=== PATIENT | female | born 1985 | race African-American/Black ===

== ENCOUNTER 2016-08-22 02:22 | Emergency (ER) | payer MEDICAID ==
--- NOTE | ~2016-08-22 | CR63 ---
[facility] A Service of [facility] & [facility] RADIOLOGY TEXT RESULTS PATIENT: ALLAN RUSSELL LOCATION: [facility] : 89 UNIT #: [id number] AGE: [address]: Dayna Shi APRN SEX: F ORDER DR: [id number] [facility] [address] [place], [place] [address] [id number] E MR#: [id number] Acc #: [id number] NAME: ALLAN RUSSELL : 1985 SEX: F STUDY DATE/TIME: 08/22/2016 0310 UNIT: [facility] ROOM: STUDY DESCRIPTION: CR Chest 2 View Attending Physician: Dayna Shi A.P.R.N. Ordering Physician: Dayna Shi A.P.R.N. Primary Care Physician: No Primary Care Physician MEDICAL IMAGING REPORT This report is preliminary unless electronic signature is present EXAM Chest x-ray, 08/22 at 0310. INDICATION Shortness of air and fever for 2 days. FINDINGS PA and lateral examination of the chest upright shows a good expansion of the parenchyma with a normal distribution of the pulmonary vascularity. There is no indication of congestion, effusion, infiltrate, tumor, or nodular density. The pleural reflections and diaphragmatic contours are normal. The cardiac silhouette and mediastinal anatomy is within normal limits. IMPRESSION Normal chest. Dictated by... Ras Sawant Jr., M.D. THIS IS AN ELECTRONICALLY VERIFIED REPORT Ras Sawant Jr., M.D. at 08/22/2016 8:45 PM TING/alicja TD: 08/22/2016 11:46 JOB #: [id number] MEDICAL IMAGING REPORT COPY
--- NOTE | ~2016-08-22 | EKG ---
PATIENT: ALLAN RUSSELL UNIT #: [id number] Ventricular Rate: 93 BPM Atrial Rate: 93 BPM P-R Interval: 136 ms QRS Duration: 82 ms Q-T Interval: 360 ms QTC Calculation(Bezet): 447 ms P [place]: 65 degrees Calculated R [place]: 15 degrees Calculated T [place]: 24 degrees Diagnosis Line: Normal sinus rhythm Diagnosis Line: Normal ECG Diagnosis Line: No previous ECGs available Diagnosis Line: Confirmed by AMANDA MILNER MD ([id number]) on Diagnosis Line: 08/23/2016 5:05:39 PM INTERPRETING MD: HAILEY
[2016-08-22 03:22] LABS: BASOPHIL% 0.5 % (0-2.5); EOSINOPHIL# 0.1 X10e3 (0-0.7); EOSINOPHIL% 0.7 % (0.0-7.0); HEMATOCRIT 37.3 % (35.0-45.0); LYMPHOCYTE# 2.3 X10e3 (1.0-3.5); LYMPHOCYTE% 27.5 % (17.0-45.0); MEAN CELL VOLUME 79.6 FL (83-96); MEAN CORPUSCULAR HEMOGLOBIN 25.6 PG (28-34); MEAN CORPUSCULAR HGB CONC 32.2 g/dL (30-36); MEAN PLATELET VOLUME 8.4 FL (6.5-11.5); MONOCYTE# 1.3 X10e3 (0-1.0); NEUTROPHIL# 4.6 X10e3 (1.5-7.1); NEUTROPHIL% 55.3 % (40-75); PLATELET COUNT 282 X10e3 (140-420); RED BLOOD COUNT 4.69 X10e (3.90-5.30); RED CELL DISTRIBUTION WIDTH 15.5 % (11.0-15.5); WHITE BLOOD COUNT 8.2 X10e3 (4.0-10.5)
[2016-08-22 03:29] LABS: DIFF IND NO
[2016-08-22 03:30] LABS: INFLUENZA A POS (NEG); INFLUENZA B NEG (NEG)
[2016-08-22 03:46] LABS: ALBUMIN SERUM 3.6 g/dL (3.5-5.0); ALKALINE PHOSPHATASE 72 U/L (32-92); ALT (SGPT) 19 U/L (10-40); AMYLASE 18 U/L (0-46); AST (SGOT) 29 U/L (10-42); BILIRUBIN,TOTAL 0.2 mg/dL (0.2-2.0); LIPASE 27 U/L (22-51); PROTEIN TOTAL SERUM 8.5 g/dL (6.0-8.3)
[2016-08-22 03:50] LABS: BILIRUBIN, DIRECT <0.1 mg/dL (0.0-0.2); BILIRUBIN,INDIRECT 0.1 mg/dL (0.0-0.9)
[2016-08-22 04:11] LABS: POC - CKMB <1.0 ng/mL (0.0-7.9); POC - TROPONIN <0.05 ng/mL (<=0.05)
[2016-08-22 04:20] LABS: BLOOD UREA NITROGEN 10 mg/dL (9-23); BUN/CREATININE RATIO 11.11; CALCIUM SERUM 8.6 mg/dL (8.4-10.2); CARBON DIOXIDE 25 mmol/L (22-31); CHLORIDE 106 mmol/L (100-111); CREATININE SERUM 0.9 mg/dL (0.6-1.4); GLOM FILT RATE Estimated ABOVE60 mL/min (>60); GLUCOSE FASTING 91 mg/dL (70-110); POTASSIUM 4.2 mmol/L (3.5-5.1); SODIUM 135 mmol/L (135-145)
== END 2016-08-22 05:45 | disposition home or self-care (01) ==
LOC: CED 02:22
PROVIDERS: Nurse Practitioner
DX: J09.X2 Influenza due to identified novel influenza A virus with other respiratory manifestations (principal); I10 Essential (primary) hypertension; F17.210 Nicotine dependence, cigarettes, uncomplicated
CPT/HCPCS: 36415; 71020; 80048; 80076; 82150; 82553; 83605; 83690; 84484; 85025; 87040; 87651; 87804; 87880; 93005; 96361; 96374; 96375; 99284; J1200; J1885; J2405